=== PATIENT | female | born 2005 | race Caucasian/White ===

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

== ENCOUNTER 2024-03-13 12:07 | Emergency (ER) | payer BC, SELFPAY ==
[2024-03-13 12:10] VITALS: BP 107/68; PULSE 57; RESP 18; TEMP 36.8; O2SAT 100
--- NOTE | 2024-03-13 14:56 | ED.WOUNDLAC ---
HPI - Wound/Laceration General Chief Complaint: Wound/Laceration Stated Complaint: laceration Time Seen by Provider: 03/13/24 14:06 History of Present Illness HPI narrative: This is a 18-year-old female with no pertinent past medical history who presents to the ED after a closed head injury. She is playing on the playground with the swing accidentally struck the right side of her face. She sustained a very minor 1 cm laceration to her scalp that was slightly oozing of blood but since stopped with direct pressure. Denies any loss of consciousness or blood thinner use. She otherwise has no headache, vision changes as in her normal state of health. No somatic symptoms of any kind. No weakness, neuropathy or altered mental status. Related Data Home Medications Medication Instructions Recorded Confirmed albuterol sulfate 90 mcg/actuation inhalation 06/29/22 aerosol inhaler cyproheptadine 4 mg tablet mg 06/29/22 dextroamphetamine-amphetamine ER PO 06/29/22 10 mg 24hr capsule,extend release hyoscyamine sulfate 0.125 mg tablet mg 06/29/22 levothyroxine 75 mcg tablet mcg 06/29/22 omeprazole 40 mg capsule,delayed mg 06/29/22 release Allergies Allergy/AdvReac Type Severity Reaction Status Date / Time azithromycin Allergy Intermediate Diarrhea Verified 03/13/24 12:59 PCN Allergy Intermediate Dizziness Uncoded 03/13/24 12:59 SCENTED LOTIONS Allergy Intermediate Drowsy Uncoded 03/13/24 12:59 Review of Systems Review of Systems: As reviewed above in HPI PMFSH Past Medical History Medical History History of ADHD History of hypothyroidism Social History Social History Smoking status: Never smoker Exam Narrative: GENERAL: [Well-appearing, well-nourished, and in no acute distress.] HEAD: Normocephalic, 1 cm linear laceration in the hairline in the parietal area. Not losing, nondistended, no musculature exposed. No signs of retained foreign body or any tenderness, scalp infection or hematoma formation. EYES: [PERRLA and EOMI.] ENT: Nares clear, no rhinorrhea or epistaxis. Mucous membranes moist. NECK: Supple. CHEST: [Clear to auscultation. No respiratory distress.] HEART: [Regular rate and rhythm]. No murmur heard. [Normal peripheral pulses.] ABDOMEN: [Soft, nondistended], [nontender], [No rigidity or guarding] EXTREMITIES: Normal range of motion. [No edema.] SKIN: Warm, dry, no rash. NEURO: [No focal deficits]. Alert and oriented [x3.] PSYCH: [Normal mood and affect.] Course Vital Signs Vital signs: Vital Signs Temperature 36.8 C 03/13/24 12:10 Pulse Rate 57 L 03/13/24 12:10 Respiratory Rate 18 03/13/24 12:10 Blood Pressure 107/68 03/13/24 12:10 Pulse Oximetry 100 03/13/24 12:10 Oxygen Delivery Room Air 03/13/24 12:10 Temperature 36.8 C 03/13/24 12:10 Pulse Rate 57 L 03/13/24 12:10 Respiratory Rate 18 03/13/24 12:10 Blood Pressure 107/68 03/13/24 12:10 Pulse Oximetry 100 03/13/24 12:10 Oxygen Delivery Room Air 03/13/24 12:10 Procedures Laceration Laceration 1: Date: 03/13/24 Time: 14:58 Site: scalp Side (If applicable): right Size (cm): 1.0 Description: linear Depth: simple, single layer Local Anesthetic: none Pre-repair: wound explored and irrigated ====== Skin Level ====== Skin layer closed with: dermabond ====== Subcutaneous Layer ====== ====== Muscle Layer ====== ====== Tendon Layer ====== MDM - Wound/Laceration MDM Narrative Medical decision making narrative: This is a 18-year-old female who sustained a minor closed head injury with a resultant scalp laceration. Utilizing [place] head CT rules she is able to be safely excluded for any intracranial injury. Wound was explored and repaired with Dermabond. Patient
== END 2024-03-13 15:08 | disposition home or self-care (01) ==
PROVIDERS: Emergency Provider Student in an Organized Health Care Education/Training Program
DX: S01.01XA Laceration without foreign body of scalp, initial encounter (principal); E03.9 Hypothyroidism, unspecified; W22.8XXA Striking against or struck by other objects, initial encounter; Y92.830 Public park as the place of occurrence of the external cause
CPT/HCPCS: 12001; 99282